=== PATIENT | female | born 1940 | race Asian ===

== ENCOUNTER 2024-01-28 19:30 | Inpatient (IN) | payer MEDICARE, MEDICAID ==
[~2024-01-28] VITALS: Ht 160 cm; Wt 64.9 kg
[2024-01-28] MEDS: IPRATROPIUM/ALBUTEROL 0.5-3(2.5)MG/3ML NEB HHN SCH (01:54)
[~2024-01-28 19:30] MED LIST: AMI2 PO; AMLO5TAB88 PO; OXYB5TAB21 PO
[2024-01-28 20:09] LABS: HEMATOCRIT. 33.1 % (36.0-48.0); HEMOGLOBIN. 10.9 g/dL (12.0-16.0); MEAN CORPUSCULAR HEMOGLOBIN 28.3 pg (28.0-32.0); MEAN CORPUSCULAR VOLUME 85.7 fL (81.0-99.0); MEAN PLATELET VOLUME 7.6 fl (7.4-10.4); PLATELET 295 x1000/uL (130-400); RED BLOOD CELL COUNT 3.86 mill/uL (4.2-5.4); RED CELL DISTRIBUTION WIDTH 25.2 % (11.6-14.6); WHITE BLOOD COUNT 9.7 x1000/uL (4.5-11.0)
[2024-01-28 20:15] VITALS: PULSE 82; RESP 22; O2SAT 96
[2024-01-28 20:16] LABS: DIFFERENTIAL COMMENT 1
[2024-01-28] MEDS: ALBUTEROL (0.083%) 2.5MG/3ML NEB HHN STA (20:18)
[2024-01-28] MEDS: IPRATROPIUM BROMIDE (0.02%) 0.5MG/2.5ML NEB HHN STA (20:18)
[2024-01-28 20:26] LABS: ALANINE AMINOTRANSFERASE 28 IU/L (10-49); ALBUMIN 4.3 g/dL (3.2-4.8); ASPARTATE AMINOTRANSFERASE 38 IU/L (<34); BILIRUBIN TOTAL 0.8 mg/dL (0.1-1.0); CALCIUM 9.3 mg/dL (8.7-10.4); CARBON DIOXIDE 19 mEq/L (21-32); CHLORIDE 105 mEq/L (98-107); CREATININE 1.2 mg/dL (0.6-1.0); GLUCOSE 147 mg/dL (70-105); POTASSIUM 4.7 mEq/L (3.5-5.1); PROTEIN TOTAL 7.4 g/dL (6.0-8.3); SODIUM 134 mEq/L (136-145); TROPONIN I HIGH SENSITIVITY 26 ng/L (3.0-34); UREA NITROGEN BLOOD 17 mg/dL (9-23)
[2024-01-28 20:36] LABS: ANISOCYTOSIS 2+; PLATELET ESTIMATE NORMAL
[2024-01-28] MEDS: KETOROLAC 15MG/ML VIAL IV ONE (21:30)
[2024-01-28] MEDS ORDERED: MAGNESIUM/ALUMINUM HYDROXIDE/SIMETHICONE 30ML UDC PO PRN (22:30)
[2024-01-28] MEDS ORDERED: CLONIDINE 0.1MG TABLET PO PRN (22:30)
[2024-01-28] MEDS ORDERED: ONDANSETRON HCL 4MG/2ML INJ IV PRN (22:30)
[2024-01-28] MEDS ORDERED: DOCUSATE SODIUM 100MG CAPSULE PO PRN (22:30)
[2024-01-28] MEDS ORDERED: GUAIFENESIN 200MG/10ML SUGAR FREE UDC PO PRN (22:30)
[2024-01-28] MEDS: MAGNESIUM/ALUMINUM HYDROXIDE/SIMETHICONE 30ML UDC PO NR (22:50)
[2024-01-28 23:47] LABS: TROPONIN I HIGH SENSITIVITY 24 ng/L (3.0-34)
[2024-01-29] VITALS (9 sets, daily range): BP systolic 142–162; BP diastolic 39–55; PULSE 65–84; RESP 16–22; TEMP 93.7–97.7; O2SAT 97–99
[2024-01-29] MEDS: MVI, ADULT NO.1 10 ML, FOLIC ACID 1 MG, THIAMINE HCL 100 MG in SODIUM CHLORIDE 0.9% 1,0... IV SCH (00:47)
[2024-01-29 01:38] LABS: TROPONIN I HIGH SENSITIVITY 24 ng/L (3.0-34)
[2024-01-29] MEDS: ACETAMINOPHEN 325MG TABLET PO PRN (03:16)
[2024-01-29 06:31] LABS: HEMATOCRIT. 30.3 % (36.0-48.0); HEMOGLOBIN. 9.9 g/dL (12.0-16.0); MEAN CORPUSCULAR HEMOGLOBIN 27.6 pg (28.0-32.0); MEAN CORPUSCULAR HGB CONC 32.6 g/dL (31.0-37.0); MEAN CORPUSCULAR VOLUME 84.5 fL (81.0-99.0); MEAN PLATELET VOLUME 7.7 fl (7.4-10.4); PLATELET 219 x1000/uL (130-400); RED BLOOD CELL COUNT 3.58 mill/uL (4.2-5.4); RED CELL DISTRIBUTION WIDTH 25.4 % (11.6-14.6); WHITE BLOOD COUNT 5.4 x1000/uL (4.5-11.0)
[2024-01-29 06:53] LABS: ALANINE AMINOTRANSFERASE 24 IU/L (10-49); ALBUMIN 3.9 g/dL (3.2-4.8); ASPARTATE AMINOTRANSFERASE 24 IU/L (<34); BILIRUBIN TOTAL 0.6 mg/dL (0.1-1.0); CALCIUM 9.1 mg/dL (8.7-10.4); CARBON DIOXIDE 23 mEq/L (21-32); CHLORIDE 106 mEq/L (98-107); CREATINE KINASE MB FRACTION 3.1 ng/mL (0.5-3.6); CREATININE 1.2 mg/dL (0.6-1.0); GLUCOSE 132 mg/dL (70-105); IRON 23 ug/dL (50-170); POTASSIUM 4.1 mEq/L (3.5-5.1); PROTEIN TOTAL 6.2 g/dL (6.0-8.3); SODIUM 137 mEq/L (136-145); T4 FREE 1.28 ng/dL (0.89-1.76); THYROID STIMULATING HORMONE 1.23 uIU/mL (0.55-4.78); TOTAL IRON BINDING CAPACITY 279 ug/dl (250-425); UREA NITROGEN BLOOD 20 mg/dL (9-23)
[2024-01-29 06:55] LABS: FERRITIN 65 ng/mL (10-291); VITAMIN B12 SERUM 850 pg/mL (211-911)
[2024-01-29 07:05] LABS: DIFFERENTIAL COMMENT 1
[2024-01-29 08:30] LABS: ANISOCYTOSIS 3+; PLATELET ESTIMATE NORMAL
[2024-01-29] MEDS: OMEPRAZOLE 20MG CAPSULE EXTENDED RELEASE PO SCH (08:47)
[2024-01-29] MEDS: AMIODARONE HCL 200 MG TABLET PO SCH (08:47)
[2024-01-29] MEDS: AMLODIPINE 5MG TABLET PO SCH (08:48)
[2024-01-29 14:04] LABS: CREATINE KINASE MB FRACTION 3.6 ng/mL (0.5-3.6)
[2024-01-29 17:03] LABS: D-DIMER 1.08 mg/L FEU (<0.50); INR 1.1
[2024-01-29] MEDS: BUDESONIDE 0.5MG/2ML NEB HHN SCH (20:49)
[2024-01-29] MEDS: ZOLPIDEM TARTRATE 5MG TABLET PO NR (21:31)
[2024-01-30] VITALS (9 sets, daily range): BP systolic 122–152; BP diastolic 41–74; PULSE 60–82; RESP 18–20; TEMP 96.8–97.5; O2SAT 99
[2024-01-30] MEDS: KETOROLAC 10MG TABLET PO NR (04:00)
[2024-01-30] MEDS: IPRATROPIUM/ALBUTEROL 0.5-3(2.5)MG/3ML NEB HHN PRN (04:28)
[2024-01-30] MEDS ORDERED: SODIUM BICARBONATE 4% (2.4MEQ) 5ML VIAL IV ONE (08:43)
== END 2024-01-30 18:59 | DRG 194 ==
LOC: ER 19:30 → 7WST 21:29 → EDBEDREQ 21:37
PROVIDERS: ADMIT Internal Medicine; ATTEND Internal Medicine
PROC: 5A09357 Assistance with Respiratory Ventilation, Less than 24 Consecutive Hours, Continuous Positive Airway Pressure (ICD-10-PCS; principal; 2024-01-30)
PROC: 0W9B3ZZ Drainage of Left Pleural Cavity, Percutaneous Approach (ICD-10-PCS; 2024-01-30)
DX: I13.0 Hypertensive heart and chronic kidney disease with heart failure and stage 1 through stage 4 chronic kidney disease, or unspecified chronic kidney disease (principal); J96.21 Acute and chronic respiratory failure with hypoxia; I24.9 Acute ischemic heart disease, unspecified; J44.1 Chronic obstructive pulmonary disease with (acute) exacerbation; D49.4 Neoplasm of unspecified behavior of bladder; D64.9 Anemia, unspecified; I50.9 Heart failure, unspecified; J91.8 Pleural effusion in other conditions classified elsewhere; I48.91 Unspecified atrial fibrillation; E11.22 Type 2 diabetes mellitus with diabetic chronic kidney disease; Z99.81 Dependence on supplemental oxygen; N18.9 Chronic kidney disease, unspecified; I44.7 Left bundle-branch block, unspecified; I25.10 Atherosclerotic heart disease of native coronary artery without angina pectoris; Z85.51 Personal history of malignant neoplasm of bladder; Z79.899 Other long term (current) drug therapy
CPT/HCPCS: 32555; 36415; 71045; 76604; 80053; 82550; 82553; 82607; 82728; 82962; 83540; 83550; 83735; 83880; 84439; 84443; 84484; 85025; 85044; 85379; 93005; 93970; 94640; 94660; 97162; 97166; 99285; J1885; J3411; J3490; J7030; J7626